=== PATIENT | female | born 1940 | race Caucasian/White ===

== ENCOUNTER 2017-04-22 11:32 | Inpatient (IN) | payer MEDICARE ==
--- NOTE | ~2017-04-22 | HP ---
Unit #: [id number] #: [id number] Patient: OLEG WESTFALL [id number] [address] [place], [place] [address] [id number] I MR#: [id number] NAME: OLEG WESTFALL. ROOM: 322 Age: 76 Sex: F Admission Date: 04/22/2017 : 1940 Attending Physician: Yuri Lam M.D. Primary Care Physician: Kem Davis M.D. HISTORY AND PHYSICAL CHIEF COMPLAINT Shortness of breath. HISTORY OF PRESENT ILLNESS The patient is a 76-year-old female with a past medical history of a seizure disorder, COPD, chronic respiratory failure, hypertension and chronic back pain, presented to the [facility] for the shortness of breath. The patient is not feeling well for the last three to four days, associated with diarrhea and shortness of breath. The patient had a chest x-ray at the [facility] and that showed there is a new bilateral interstitial change with patchy airspace density in the right apex and right mid and lower lungs. Findings are favored to represent asymmetric edema or pneumonia. The patient is being admitted for the above reasons. PAST MEDICAL HISTORY History of seizures, COPD, chronic respiratory failure anemia, hypertension, depression, chronic back pain. PAST SURGICAL HISTORY Cholecystectomy, eye surgery, . SOCIAL HISTORY The patient lives alone. There is no alcohol, tobacco or any illicit drug abuse. FAMILY HISTORY Notable for CVA. ALLERGIES Penicillin, quinolones and bupropion. HOME MEDICATION Aspirin, albuterol, Norvasc, complex pill, Lasix, Neurontin, Cymbalta, Lisinopril, Lopressor and Keppra. REVIEW OF SYMPTOMS A 14-point review of symptoms performed and only pertinent positive findings as described above, remaining are negative. PHYSICAL EXAMINATION GENERAL APPEARANCE: On examination the patient is lying on a bed not in acute distress. VITAL SIGNS: Temperature is 97.7, pulse 72, respirations 18 and blood Unit #: [id number] #: [id number] Patient: OLEG WESTFALL pressure is 138/61. HEENT: Head atraumatic/normocephalic. Pupils equal, round and reacting to light and accommodation. Extraocular movements are intact. NECK: Supple. LUNGS: Decreased air entry at the bases. Positive for rhonchi. HEART: Regular rate and rhythm. ABDOMEN: Soft, positive bowel sounds. EXTREMITIES: No cyanosis. No clubbing. NEUROLOGIC: Alert, awake, oriented. No gross focal motor deficit. DIAGNOSTIC STUDIES LABORATORY DATA: ABG shows pH of 7.38, pCO2 of 44.8, pO2 66, bicarb 25.7, oxygen saturation 93. INR is 1.9. WBC 35.5, hemoglobin 9.8, hematocrit 29.9, platelets 433. Lactic acid is 1. Sodium 133, potassium 3, chloride 96, bicarb 24, glucose 168, BUN 16, creatinine 0.9, BNP 400. UA shows positive nitrite, 2+ protein, 3+ blood, 2+ bacteria. Ammonia is 24 and. ASSESSMENT 1. Pneumonia. 2. Hyponatremia. 3. Hypokalemia. PLAN Plan to admit the patient to the inpatient with the telemetry. Continue with IV antibiotics with Rocephin and Zithromax and continue with the replacement of potassium and continue with the diuresis and repeat the CBC again and further recommendations will follow. Meredith TD: 04/22/2017 21:20 JOB #: [id number] Dictated by Keysha Rousseau TD: 04/23/2017 20:37 JOB #: [id number] HISTORY AND PHYSICAL Page 1 of 1 X SIENNA PARIKH MD X HISTORY AND PHYSICAL
--- NOTE | ~2017-04-22 | CO ---
Unit #: [id number] #: [id number] Patient: OLEG WESTFALL [id number] [address] [place], [place] [address] [id number] I MR#: [id number] NAME: OLEG WESTFALL. ROOM: 326 Age: 76 Sex: F Admission Date: 04/22/2017 : 1940 Attending Physician: Yuri Lam M.D. Primary Care Physician: Kem Davis M.D. CONSULTATION REPORT CHIEF COMPLAINT Bilateral pneumonia, leukocytosis, thrombocytosis, anemia. HISTORY OF PRESENT ILLNESS This is a 76-year-old female who started smoking at the age of 10. She has been smoking more than 50 years, averaging two to three packs per day. She came to the hospital with declined performance. Cough. Patient had chest x-ray and CT of the chest it showed bilateral pneumonia, COPD, and emphysema. From a hematology point of view, CBC shows WBC 30.3, hemoglobin 10.3, MCV 91, platelets 499, neutrophils 91%. I reviewed the peripheral smear. There are myelocytes, bands. No blasts, no schistocytes. At present, she is comfortable and wants to go home. REVIEW OF SYSTEMS CONSTITUTIONAL: No fever, no chills, no sweats, no weight loss. EYES: No visual symptoms. EARS, NOSE AND THROAT: There is no runny nose or sore throat or difficulty hearing. CARDIOVASCULAR: No chest pain. No shortness of breath. No palpitations. No orthopnea. No PND. RESPIRATORY: As mentioned above. GASTROINTESTINAL: No nausea, vomiting, diarrhea, constipation, hematochezia or melena. GENITOURINARY: No urinary frequency, hesitancy or urgency. No blood in the urine. MUSCULOSKELETAL: No muscle or joint pain. NEUROLOGIC: No headache. No numbness or tingling. No weakness. No seizure. PSYCHIATRIC: No anxiety, depression or mood disturbance. ENDOCRINE: No excessive urination or thirst. DERMATOLOGIC: No rash or change in the skin. ALLERGIC/IMMUNOLOGIC: No symptoms. HEMATOLOGIC/LYMPHATIC: Denies any symptoms. PAST MEDICAL HISTORY Includes: 1. Seizure disorder. 2. COPD. 3. Depression. 4. Anxiety. 5. Back pain. Unit #: [id number] #: [id number] Patient: OLEG WESTFALL 6. Hypertension. PAST SURGICAL HISTORY 1. Cholecystectomy. 2. . CURRENT MEDICATIONS Include: 1. Solu-Medrol. 2. Lovenox. 3. Cymbalta. 4. Keppra. 5. Rocephin. ALLERGIES 1. Penicillin. 2. Quinolones. SOCIAL HISTORY As mentioned above. She started smoking at age of 10 and patient has been smoking more than 50 years, about two to three packs per day. Denies alcohol use. She used to work in a factory. FAMILY HISTORY Positive for CVA. PHYSICAL EXAMINATION GENERAL: Patient is comfortable. ECOG is 0. The patient is pleasant. VITAL SIGNS: Afebrile. Pulse 67, respiratory rate 18, O2 saturation 2 liters 97%, blood pressure 110/43. HEENT: Moist mucosa. Pupils equally reactive to light. Extraocular muscles intact. Sclerae anicteric. No obvious bleeding from nasal mucosa or oral mucosa. Scalp normal. Hearing normal. NECK: No JVD. No lymphadenopathy. LYMPHATIC/HEMATOLOGIC: There is no palpable adenopathy in the neck, axilla or inguinal area. CARDIOVASCULAR: S1, S2. Regular rate and rhythm. No S3 or S4. RESPIRATORY: Some bilateral wheezes. ABDOMEN/GASTROINTESTINAL: Abdomen is soft, nontender, nondistended. No hepatosplenomegaly. EXTREMITIES: There is no clubbing, no cyanosis, no edema. No varicose veins. NEUROLOGICAL: Patient is alert, awake and oriented x3. Cranial nerves II-XII are intact. Sensory grossly intact. Motor is 4/5 in all four extremities. Gait is normal. Station is normal. Language is normal. Memory is normal. DTRs +2 in all four extremities. MUSCULOSKELETAL: No joint swelling. No bony tenderness. No muscle tenderness. SKIN: No petechiae, no rash, no ecchymosis. PSYCHIATRIC: No anxiety. No delusions or hallucinations. There is no agitation. Eye contact is normal. Affect is appropriate. There is no flight of ideas. DIAGNOSTIC STUDIES LABORATORY: As mentioned above. IMAGING: CT of the chest showing bilateral pneumonia. Unit #: [id number] #: [id number] Patient: OLEG WESTFALL ASSESSMENT AND PLAN This 76-year-old female has the following active issues: 1. Leukocytosis, thrombocytosis. I reviewed the peripheral smear. There is a myelocyte. There are bands. I doubt that she has disease in the bone marrow. This is most likely reactive secondary to infection. I follow the patient as an outpatient. If leukocytosis and thrombocytosis persist, then we will do bone marrow biopsy to rule out myeloproliferative disease. This is because she is a 76-year-old, she has had . 2. Anemia. Will check iron study. 3. Respiration. Patient has COPD and pneumonia. She is receiving antibiotic and is stable. Dictated by... Jaqui Cool M.D. Michael TD: 04/25/2017 18:34 JOB #: [id number] CONSULTATION REPORT Page 1 of 1 X Jaqui Cool MD CONSULTATION REPORT
--- NOTE | ~2017-04-22 | OR ---
Unit #: [id number] #: [id number] Patient: OLEG WESTFALL [id number] [address] [place], [place] [address] [id number] I MR#: [id number] NAME: OLEG WESTFALL. ROOM: [facility] Date of Procedure: 04/26/2017 Admission Date: 04/22/2017 Surgeon: Ivet Cortez M.D. : 1940 Attending Physician: Yuri Lam M.D. Primary Care Physician: Kem Davis M.D. PROCEDURE OPERATIVE NOTE PREOPERATIVE DIAGNOSIS Pneumonia. POSTOPERATIVE DIAGNOSIS Pneumonia. PROCEDURE PERFORMED Bronchoscopy and bronchioalveolar lavage. INDICATION Pneumonia. DETAILS OF THE PROCEDURE After taking consent from the patient and explaining risks and benefits, the patient was placed in appropriate position. Bronchoscope introduced in the oral cavity and vocal cords appeared to be symmetrically moving toward the midline. Trachea was normal. Mary was sharp. We examined the right upper, right middle, and right lower lobe, left upper lobe, lingula, and left lower lobe and no endobronchial lesion was found. There were thick mucoid secretions both lungs which were therapeutic suctioned and we did a bronchioalveolar lavage with 60 mL saline and then 20 mL back in the right upper lobe area. The patient tolerated the procedure very well. No complications happened. Dictated by... Keysha Moore TD: 04/27/2017 10:45 JOB #: [id number] Unit #: [id number] #: [id number] Patient: OLEG WESTFALL PROCEDURE OPERATIVE NOTE Page 1 of 1 X Ivet Cortez MD PROCEDURE OPERATIVE NOTE
--- NOTE | ~2017-04-22 | CT57 ---
[facility] A Service of [facility] & [facility] RADIOLOGY TEXT RESULTS PATIENT: OLEG WESTFALL LOCATION: [facility] 322- : 40 UNIT #: [id number] AGE: [address]: Yuri Lam MD SEX: F ORDER DR: [id number] [facility] [address] [place], [place] [address] [id number] I MR#: [id number] Acc #: [id number] NAME: OLEG WESTFALL. : 1940 SEX: F STUDY DATE/TIME: 04/24/2017 10:14 UNIT: [address] ROOM: [facility] STUDY DESCRIPTION: CT Chest Wo Cont Attending Physician: Yuri Lam M.D. Ordering Physician: Yuri Lam M.D. Primary Care Physician: Kem Davis M.D. MEDICAL IMAGING REPORT This report is preliminary unless electronic signature is present EXAM CT chest without contrast 04/24/2017 1014 hours CLINICAL HISTORY Patient complains of shortness of air since 04/22/2017. Abnormal chest x-ray on 04/22/2017 with question of pneumonia versus pulmonary nodule. COMPARISON Chest CT 12/21/2013 and chest x-ray 04/22/2017. TECHNIQUE Helical noncontrasted images were obtained from the thoracic inlet through the adrenal glands. Sagittal and coronal reconstructions were performed. Total exam DLP 538 mGy-cm. This CT exam was performed with one or more of the following radiation dose reduction techniques: Automatic exposure control, adjustment of mA and/or kV according to patient size, and iterative reconstruction. FINDINGS Images through the thoracic inlet demonstrate a stable low-density lesion in the left lobe of thyroid unchanged from 12/21/2013 most consistent with a benign follicular cyst. There is no supraclavicular adenopathy. Images through the chest demonstrate a tortuous aorta with atherosclerotic change. Cardiac chambers are within normal limits. There is no pericardial fluid. The esophagus is normal. The lung window images are abnormal. There is multifocal patchy airspace density in the upper lobes right greater than left and lower lobes right greater than left. There are some ground-glass areas of more dense airspace areas with a few areas of air bronchograms. The findings are most suggestive of multifocal pneumonia. There is no discrete mass. The density in the lateral mid right lung on chest film 04/22/2017 was likely STS. [facility] A Service of [facility] & [facility] RADIOLOGY TEXT RESULTS PATIENT: OLEG WESTFALL LOCATION: [facility] 322-01 : 40 UNIT #: [id number] AGE: [address]: Yuri Lam MD SEX: F ORDER DR: superimposition of confluence of several of these areas of abnormal density in the midlung region. There is suggested mucous plugging in the lower lobe on the right. There is peribronchial wall thickening suggested diffusely likely an element of bronchitis, acute or chronic. There is no pleural effusion. Limited views through the upper abdomen are negative. IMPRESSION 1. There is a multifocal airspace density in the right lung greater than left, involving the upper, mid and lower lungs bilaterally similar to chest film 04/22/2017. The findings most likely represent multifocal pneumonia. There is no discrete mass, pleural effusion, or pathologic adenopathy. There are areas where there is suggested peribronchial wall thickening in a few areas with mucous plugging particularly in the right lower lobe. Aspiration pneumonia is a consideration, however, given the extensive bilateral appearance community acquired multifocal pneumonia is favored. 3. Mildly tortuous aorta. Normal cardiac chambers. 4. No acute findings in the upper abdomen. STAT * RESULT Dictated by... Alysha Oliveira M.D. THIS IS AN ELECTRONICALLY VERIFIED REPORT Alysha Oliveira M.D. at 04/24/2017 2:31 PM HILLARY/trish TD: 04/24/2017 13:22 JOB #: [id number] MEDICAL IMAGING REPORT Page 1 of 1 COPY
--- NOTE | ~2017-04-22 | DS ---
Unit #: [id number] #: [id number] Patient: OLEG WESTFALL [id number] [address] [address] [id number] I MR#: [id number] NAME: OLEG WESTFALL. ROOM: 326 Age: 76 Sex: F Admission Date: 04/22/2017 : 1940 Discharge Date: 04/28/2017 Attending Physician: Yuri Lam M.D. Primary Care Physician: Kem Davis M.D. DISCHARGE SUMMARY DIAGNOSES ON ADMISSION Pneumonia, sepsis. DIAGNOSES ON DISCHARGE 1. Bilateral pneumonia. 2. Acute on chronic respiratory failure. 3. Sepsis, resolved. 4. Acute urinary tract infection. 5. Acute exacerbation of chronic obstructive pulmonary disease, improved. 6. Leukocytosis. 7. Tobacco abuse. 8. Seizure disorder. 9. Depression. 10. Chronic low back pain. CONSULTANTS Dr. Cortez in pulmonary consultation. Dr. Jaqui Bajwa in hematology consultation. PROCEDURES PERFORMED The patient had a bronchoscopy done, which did not reveal any endobronchial lesion. There were thick mucoid secretions which were suctioned. DIAGNOSTIC DATA LABORATORY: The patient's creatinine today was 0.5, sodium 138, potassium 4.8. Folate level greater than 24. White blood cell count 25.6, hemoglobin 9.9, platelets 607. Blood cultures did not reveal any growth so far. Urine for legionella antigen was negative. Urine for strep pneumonia was also negative. Bronchial (1) and revealed 2+ yeast. There was no other growth. No bacterial growth. C-diff was negative. The patient's procalcitonin level was 0.99. Urine culture was positive for e-coli, which was sensitive to ceftriaxone. IMAGING: CT scan of the abdomen and pelvis had revealed bilateral multifocal densities, right greater than left. There was no discrete mass. HOSPITAL COURSE The patient is a 76-year-old female who was admitted to [facility] for shortness of air. Details are as per admission history and physical. Sepsis. Unit #: [id number] #: [id number] Patient: OLEG WESTFALL Bilateral pneumonia: The patient was seen by Dr. Cortez in consultation and was treated with IV antibiotics and had a bronchoscopy done. The patient is feeling much better now. Acute e-coli urinary tract infection: The patient will be on Omnicef. Acute exacerbation of chronic obstructive pulmonary disease: The patient was treated with Solu-Medrol and has responded well. Leukocytosis: The patient's white blood cell count was consistently elevated. Dr. Cool was consulted and has recommended that the patient can follow up on an outpatient basis for further workup. If white blood cells stay persistent, then he will do a bone marrow biopsy. The patient received IV iron during the stay in the hospital. PHYSICAL EXAMINATION GENERAL: Today on physical examination the patient is comfortable, sitting in a chair. He is much better. He has already walked with physical therapy. VITALS: Temperature 97.9, pulse 67 per minute, respiratory rate 18 per minute, blood pressure 126/45, oxygen saturation 95% on 2 liters O2. HEENT: No conjunctival congestion. Sclerae nonicteric. NECK: Supple. Trachea central. RESPIRATORY: Decreased breath sounds bilaterally. There are no wheezes or crackles. HEART: Regular rate and rhythm. S1 and S2. ABDOMEN: Soft and nontender. Bowel sounds are present in all four quadrants. SKIN: Warm and dry. LUNGS: There are bilateral crackles. DISCHARGE CONDITION Stable. ACTIVITY As tolerated. DISPOSITION The patient will be transferred to the rehab facility. DISCHARGE MEDICATIONS 1. Albuterol min-neb treatments q.2 h. p.r.n. and q.6 h. scheduled. 2. Tylenol 650 mg p.o. q.6 h. p.r.n. 3. Lovenox 40 mg subcutaneous daily for 1 week until the patient ambulates better. 4. Neurontin 100 mg p.o. t.i.d. 5. Keppra 500 mg p.o. b.i.d. 6. Cymbalta 30 mg p.o. b.i.d. 7. Diflucan 100 mg p.o. daily for 2 days. 8. Robitussin cough syrup 5 mg q.6 h. p.r.n. cough. 9. Nicotine patch 21 mg 1 patch daily. 10. Norvasc 5 mg p.o. daily. 11. Lopressor 50 mg p.o. b.i.d. 12. Namenda 10 mg p.o. daily. 13. Aricept 10 mg p.o. daily. 14. Mucinex 600 mg p.o. b.i.d. 15. Lasix 40 mg p.o. daily. Unit #: [id number] #: [id number] Patient: OLEG WESTFALL 16. Lisinopril 5 mg p.o. daily. 17. Enteric coated aspirin 81 mg p.o. daily. 18. Spironolactone 25 mg p.o. daily. 19. Vitamin B complex 1 tablet p.o. daily. The plan was discussed in detail with the patient's daughter, Rosario, and also with the patient's son-in-law, Dr. Cameron Ignacio, multiple times. They were given the opportunity to ask questions and all of their questions were discussed to their apparent satisfaction. The plan was also discussed with Dr. Cortez, who was also discussed with Dr. Ignacio. I also personally discussed the plan with Dr. Jaqui Cool. If the patient has a persistent leukocytosis, then she will need to follow up with Dr. Cool for further workup. Total time spent on this discharge was 35 minutes. Dictated by... Keysha Almendarez TD: 04/28/2017 15:24 JOB #: [id number] DISCHARGE SUMMARY Page 1 of 1 X Yuri Lam MD X DISCHARGE SUMMARY
--- NOTE | ~2017-04-22 | CO ---
Unit #: [id number] #: [id number] Patient: OLEG WESTFALL [id number] [address] [place], [place] [address] [id number] I MR#: [id number] NAME: OLEG WESTFALL ROOM: 322 Age: 76 Sex: F Admission Date: 04/22/2017 : 1940 Attending Physician: Yuri Lam M.D. Primary Care Physician: Kem Davis M.D. Consultation Date: 04/24/2017 CONSULTATION REPORT REASON FOR CONSULT Pneumonia. CHIEF COMPLAINT Shortness of breath. HISTORY OF PRESENT ILLNESS This is a very pleasant 76-year-old female with past medical history significant for chronic hypoxic respiratory failure - mainly at night, seizure disorder, COPD and hypertension who presented to the emergency room with progressive shortness of breath for the last few days. The patient stated that she has not been feeling well for the last week, and she had some mild loose stool associated with shortness of breath and cough. Her chest x-ray is concerning for bilateral pneumonia; however, malignancy cannot be ruled out. Patient denied any nausea, vomiting or fever. PAST MEDICAL HISTORY 1. Seizure. 2. COPD. 3. Chronic hypoxic respiratory failure. 4. Hypertension. 5. Depression. 6. Chronic back pain. PAST SURGICAL HISTORY 1. Cholecystectomy. 2. Eye surgery. 3. . SOCIAL HISTORY The patient lives alone. No history of alcohol or drug abuse; however, she smokes but unsure how much. FAMILY HISTORY CVA. ALLERGIES Penicillin, quinolones and bupropion. HOME MEDICATIONS 1. Aspirin. 2. Albuterol. 3. Norvasc. Unit #: [id number] #: [id number] Patient: OLEG WESTFALL 4. Complex pill. 5. Lasix. 6. Neurontin. 7. Cymbalta. 8. Lisinopril. 9. Lopressor. 10. Keppra. REVIEW OF SYSTEMS Patient is a poor historian, and to my best knowledge, she stated that she was feeling bad with shortness of breath and cough and diarrhea. A 12-point review of systems was obtained and was negative except for what was mentioned above. PHYSICAL EXAMINATION GENERAL: The patient is in no acute distress at this point. VITAL SIGNS: Temperature 98.3, O2 saturation 92% on 4 liters nasal cannula. HEENT: Atraumatic, normocephalic. PERRLA, EOMI. NECK: Supple. No JVD. No lymphadenopathy. CHEST: Bilateral fine rhonchi with diminished breath sounds at the bases. HEART: S1, S2. No murmur, gallops or rubs. ABDOMEN: Soft, nontender. Bowel sounds positive. No hepatosplenomegaly. EXTREMITIES: No edema or cyanosis. SKIN: No rashes. SLIDE ATTENDANT: Awake, alert, oriented x3. No focal motor/sensory deficits. DIAGNOSTIC STUDIES LABS: Creatinine 0.5, sodium 140. White blood count 39.9, hemoglobin 10.5. ASSESSMENT 1. Acute on chronic hypoxic respiratory failure. 2. Community-acquired pneumonia, gram-positive/atypical. 3. Rule out malignancy. 4. Smoking. 5. COPD exacerbation. 6. Chronic anemia. PLAN 1. The patient's oxygen will be weaned down to baseline. She is currently on 4-5 liters nasal cannula. 2. Will obtain a dedicated CT chest to evaluate for underlying lung malignancy, and we may need to proceed with bronchoscopy. 3. Legionella and Streptococcus urine antigen test. 4. Rocephin and azithromycin. 5. Bronchodilator, mucolytics and antitussive. 6. Gentle IV hydration if needed. 7. Physical therapy. Dictated by... Lynette Alvarado M.D. EA/sae Unit #: [id number] #: [id number] Patient: OLEG WESTFALL TD: 04/24/2017 11:04 JOB #: [id number] CONSULTATION REPORT Page 1 of 1 X LYNETTE POLANCO MD X CONSULTATION REPORT
--- NOTE | ~2017-04-22 | CR72 ---
[facility] A Service of [facility] RADIOLOGY TEXT RESULTS PATIENT: OLEG WESTFALL LOCATION: [facility] 322-01 : 40 UNIT #: [id number] AGE: [address]: SIENNA PARIKH MD SEX: F ORDER DR: [id number] [place] [id number] E MR#: [id number] Acc #: [id number] NAME: OLEG WESTFALL : 1940 SEX: F STUDY DATE/TIME: 04/22/2017 12:20 UNIT: SED ROOM: STUDY DESCRIPTION: CR Chest Single View Portable Attending Physician: Abhi Davies M.D. Ordering Physician: Abhi Davies M.D. Primary Care Physician: Kem Davis M.D. MEDICAL IMAGING REPORT This report is preliminary unless electronic signature is present. EXAM Chest portable 04/22/2017 1220 hours HISTORY 76-year-old with history of Alzheimer, prior CVA complaining of shortness of air and weakness for 3-4 days. COMPARISON 01/03/2015 FINDINGS Portable upright chest demonstrates normal heart size. Mediastinal and hilar contours are normal. There is pulmonary venous distension and bilateral diffuse interstitial changes. Findings are greater on the right than left. There is airspace density in the right mid lung right lung base which could represent edema or pneumonia. Area appears slightly nodular in the lateral right mid hemithorax measuring up to 2.7 cm. It is possible this represents confluent airspace change, loculated fluid or developing lung mass or nodule. Suggest treatment for the acute abnormality with followup chest CT if this fails to resolve. IMPRESSION There is new bilateral interstitial change with patchy airspace density in the right apex and right mid and lower lungs. Findings are favored to represent asymmetric edema or pneumonia. There is a nodular appearing area in the lateral mid-right hemithorax measuring up to 2.7 cm. This could represent confluent airspace density, loculated pleural fluid or developing lung mass or nodule. This is not seen on the prior studies. Suggest treatment for the acute pulmonary process. If this nodular area fails to rapidly resolve or decrease in size then a followup chest CT would be recommended. [facility] A Service of [facility] RADIOLOGY TEXT RESULTS PATIENT: OLEG WESTFALL LOCATION: [facility] 322-01 : 40 UNIT #: [id number] AGE: [address]: SIENNA PARIKH MD SEX: F ORDER DR: Dictated by... Alysha Oliveira M.D. THIS IS AN ELECTRONICALLY VERIFIED REPORT Alysha Oliveira M.D. at 04/22/2017 8:03 PM HILLARY/ara TD: 04/22/2017 14:36 JOB #: [id number] MEDICAL IMAGING REPORT Page 1 of 1
--- NOTE | ~2017-04-22 | EKG ---
PATIENT: OLEG WESTFALL UNIT #: [id number] Ventricular Rate: 107 BPM Atrial Rate: 107 BPM P-R Interval: 180 ms QRS Duration: 74 ms Q-T Interval: 352 ms QTC Calculation(Bezet): 469 ms P [place]: 86 degrees Calculated R [place]: 44 degrees Calculated T [place]: 64 degrees Diagnosis Line: Sinus tachycardia with Possible Premature atrial Diagnosis Line: complexes with Aberrant conduction Diagnosis Line: Septal infarct , age undetermined Diagnosis Line: Abnormal ECG Diagnosis Line: When compared with ECG of 05-JAN-2015 06:56, Diagnosis Line: Aberrant conduction is now Present Diagnosis Line: Septal infarct is now Present Diagnosis Line: Confirmed by MARVA FLORES MD ([id number]) on Diagnosis Line: 04/30/2017 8:28:14 AM INTERPRETING MD: MARK YOUNGBLOOD
[~2017-04-22 11:32] MED LIST: AIRGO ROLLING W1 PKT MC; ALBUTEROL MININEB NEB; ASPIRIN EC PO; ASPIRIN EC81 M1 PO; ASPIRIN81 M1 PO; BP PILL; CYMBALTA30 MG PO; DILANTIN; DILANTIN KAPSE100 MG PO; DILANTIN PO; GABAPENTIN300 MG PO; HYDROCODON-ACE1 EAC4 PO; HYDROCODON-ACE1 EAC5 PO; IBUPROFEN PO; IBUPROFEN400 MG PO; INHALER; K-LYTE PO; KEPPRA500 M2 PO; KEPPRA500 MG PO; KLOR-CON PO; LAMOTRIGINE50 MG PO; LASIX PO; LASIX20 MG PO; LISINOPRIL20 MG PO; LISINOPRIL5 MG PO; LOPRESSOR PO; LORTAB 10-5001 EACH PO; LORTAB 5/500 TA1 TA2 PO; LORTAB 7.5-5001 TAB PO; LYRICA100 MG PO; MEDROL PO; METOPROLOL TAR25 MG PO; NAMENDA10 MG; NEURONTIN; NEURONTIN PO; NEURONTIN100 MG PO; NORVASC10 MG PO; PERCOCET PO; SERTRALINE HCL50 MG PO; TOPROL XL 50 MG50 MG PO; VANTIN200 MG PO; VICODIN 5/1 TAB 5/50 PO; WELLBUTRIN75 M1 PO; ZOLOFT PO; [UNRECOGNIZED DRUG - OTHER] PO
[2017-04-22 12:22] LABS: ARTERIAL BLOOD GAS HCO3 25.7 mmol/L; ARTERIAL BLOOD GAS PCO2 44.8 mmHg (35.0-45.0)
[2017-04-22 12:23] LABS: ARTERIAL BLOOD GAS ALLEN TEST NORMAL; ARTERIAL DRAW? YES
[2017-04-22 12:24] LABS: ARTERIAL BLOOD GAS ART SITE LEFT RADIAL
[2017-04-22 12:31] LABS: BASOPHIL# 0.1 X10e3 (0-0.3); BASOPHIL% 0.2 % (0-2.5); HEMATOCRIT 29.9 % (35.0-45.0); HEMOGLOBIN 9.8 gm/dL (12.0-16.0); LYMPHOCYTE# 1.3 X10e3 (1.0-3.5); LYMPHOCYTE% 3.7 % (17.0-45.0); MEAN CORPUSCULAR HEMOGLOBIN 29.3 PG (28-34); MEAN CORPUSCULAR HGB CONC 32.9 g/dL (30-36); MEAN PLATELET VOLUME 8.5 FL (6.5-11.5); MONOCYTE# 1.5 X10e3 (0-1.0); MONOCYTE% 4.2 % (3.0-12.0); NEUTROPHIL# 32.6 X10e3 (1.5-7.1); NEUTROPHIL% 91.9 % (40-75); PLATELET COUNT 423 X10e3 (140-420); RED BLOOD COUNT 3.36 X10e (3.90-5.30); RED CELL DISTRIBUTION WIDTH 13.5 % (11.0-15.5); WHITE BLOOD COUNT 35.5 X10e3 (4.0-10.5)
[2017-04-22 12:34] LABS: DIFF IND YES
[2017-04-22 12:43] LABS: INR 1.7; PROTHROMBIN TIME (PATIENT) 18.9 SECONDS (9.5-12.4)
[2017-04-22 12:52] LABS: ALBUMIN SERUM 2.6 g/dL (3.5-5.0); BILIRUBIN, DIRECT 0.2 mg/dL (0.0-0.2); BILIRUBIN,INDIRECT 0.3 mg/dL (0.0-0.9); BILIRUBIN,TOTAL 0.5 mg/dL (0.2-2.0); BUN/CREATININE RATIO 17.77; CALCIUM SERUM 8.3 mg/dL (8.4-10.2); CREATININE SERUM 0.9 mg/dL (0.6-1.4); GLOM FILT RATE Estimated 62.2 mL/min (>60); PROTEIN TOTAL SERUM 7.7 g/dL (6.0-8.3)
[2017-04-22 12:58] LABS: PLATELET ESTIMATE INCREASED (NORMAL); RBC NORMAL YES
[2017-04-22 13:18] LABS: URINE APPEARANCE CLEAR; URINE BILIRUBIN NEG (NEG); URINE BLOOD 3+ (NEG); URINE COLOR YELLOW; URINE GLUCOSE NEG (NORM); URINE LEUKOCYTE ESTERASE NEG (NEG); URINE NITRATE POS (NEG); URINE PROTEIN 2+ (NEG); URINE SPECIFIC GRAVITY 1.025 (1.003-1.035); URINE UROBILINOGEN 0.2 MG/DL (NORM)
[2017-04-22 13:20] LABS: MICRO INDICATED? YES; URINE KETONE 2+ (NEG)
[2017-04-22 13:27] LABS: URINE RBC 0-2 /[HPF] (0-2)
[2017-04-22 13:28] LABS: CULTURE INDICATED? YES; URINE BACTERIA 2+ (NEG); URINE SQUAMOUS EPITHELIAL CELL OCCAS /[HPF]
[2017-04-22 19:27] LABS: HEMATOCRIT 31.7 % (35.0-45.0); MEAN CELL VOLUME 91.2 FL (83-96); MEAN CORPUSCULAR HEMOGLOBIN 28.8 PG (28-34); MEAN CORPUSCULAR HGB CONC 31.6 g/dL (30-36); MEAN PLATELET VOLUME 8.5 FL (6.5-11.5); RED BLOOD COUNT 3.48 X10e (3.90-5.30); RED CELL DISTRIBUTION WIDTH 13.7 % (11.0-15.5)
[2017-04-23 06:12] LABS: HEMATOCRIT 32.2 % (35.0-45.0); HEMOGLOBIN 10.3 gm/dL (12.0-16.0); MEAN CORPUSCULAR HEMOGLOBIN 29.2 PG (28-34); MEAN CORPUSCULAR HGB CONC 32.1 g/dL (30-36); MEAN PLATELET VOLUME 8.7 FL (6.5-11.5); RED BLOOD COUNT 3.54 X10e (3.90-5.30); RED CELL DISTRIBUTION WIDTH 14.3 % (11.0-15.5); WHITE BLOOD COUNT 36.9 X10e3 (4.0-10.5)
[2017-04-23 06:59] LABS: BUN/CREATININE RATIO 26.66; CALCIUM SERUM 8.4 mg/dL (8.4-10.2); CREATININE SERUM 0.6 mg/dL (0.6-1.4); GLOM FILT RATE Estimated 88.5 mL/min (>60); POTASSIUM 3.8 mmol/L (3.5-5.1)
[2017-04-24 05:50] LABS: HEMATOCRIT 33.2 % (35.0-45.0); HEMOGLOBIN 10.5 gm/dL (12.0-16.0); MEAN CELL VOLUME 91.7 FL (83-96); MEAN CORPUSCULAR HEMOGLOBIN 28.8 PG (28-34); MEAN CORPUSCULAR HGB CONC 31.5 g/dL (30-36); MEAN PLATELET VOLUME 8.9 FL (6.5-11.5); RED BLOOD COUNT 3.62 X10e (3.90-5.30); RED CELL DISTRIBUTION WIDTH 14.4 % (11.0-15.5); WHITE BLOOD COUNT 39.9 X10e3 (4.0-10.5)
[2017-04-24 06:51] LABS: CALCIUM SERUM 8.6 mg/dL (8.4-10.2); CREATININE SERUM 0.5 mg/dL (0.6-1.4); POTASSIUM 4.1 mmol/L (3.5-5.1)
[2017-04-25 05:34] LABS: HEMATOCRIT 33.2 % (35.0-45.0); HEMOGLOBIN 10.3 gm/dL (12.0-16.0); MEAN CELL VOLUME 91.4 FL (83-96); MEAN CORPUSCULAR HEMOGLOBIN 28.5 PG (28-34); MEAN CORPUSCULAR HGB CONC 31.2 g/dL (30-36); MEAN PLATELET VOLUME 8.8 FL (6.5-11.5); RED BLOOD COUNT 3.63 X10e (3.90-5.30); RED CELL DISTRIBUTION WIDTH 14.4 % (11.0-15.5); WHITE BLOOD COUNT 30.3 X10e3 (4.0-10.5)
[2017-04-25 06:24] LABS: BUN/CREATININE RATIO 26.66; CALCIUM SERUM 8.2 mg/dL (8.4-10.2); CREATININE SERUM 0.6 mg/dL (0.6-1.4); GLOM FILT RATE Estimated 88.5 mL/min (>60); POTASSIUM 4.4 mmol/L (3.5-5.1)
[2017-04-25 11:32] LABS: LEGIONELLA AG URINE NEG (NEG)
[2017-04-26 06:12] LABS: HEMATOCRIT 33.3 % (35.0-45.0); HEMOGLOBIN 10.4 gm/dL (12.0-16.0); MEAN CELL VOLUME 91.7 FL (83-96); MEAN CORPUSCULAR HEMOGLOBIN 28.7 PG (28-34); MEAN CORPUSCULAR HGB CONC 31.3 g/dL (30-36); MEAN PLATELET VOLUME 8.5 FL (6.5-11.5); RED BLOOD COUNT 3.63 X10e (3.90-5.30); RED CELL DISTRIBUTION WIDTH 14.6 % (11.0-15.5); WHITE BLOOD COUNT 28.3 X10e3 (4.0-10.5)
[2017-04-26 07:46] LABS: FERRITIN 354 ng/mL (11-307)
[2017-04-26 09:03] LABS: ALBUMIN SERUM 2.2 g/dL (3.5-5.0); BILIRUBIN,TOTAL 0.7 mg/dL (0.2-2.0); BUN/CREATININE RATIO 25.71; CREATININE SERUM 0.7 mg/dL (0.6-1.4); GLOM FILT RATE Estimated 84.2 mL/min (>60); PROTEIN TOTAL SERUM 6.5 g/dL (6.0-8.3)
[2017-04-26 09:07] LABS: POTASSIUM 6.2 mmol/L (3.5-5.1)
[2017-04-26] MEDS ORDERED: DIFLUCAN PO (10:46)
[2017-04-26] MEDS ORDERED: DESENEX45 G1 EXT (10:46)
[2017-04-26] MEDS ORDERED: NITROFURANTOIN100 M3 PO (10:46)
[2017-04-26 14:09] LABS: BODY FLUID APPEARANCE TURBID; BODY FLUID SOURCE BRONCHIAL LAVAGE
[2017-04-27 06:20] LABS: HEMATOCRIT 32.8 % (35.0-45.0); HEMOGLOBIN 10.2 gm/dL (12.0-16.0); MEAN CELL VOLUME 91.3 FL (83-96); MEAN CORPUSCULAR HEMOGLOBIN 28.4 PG (28-34); MEAN CORPUSCULAR HGB CONC 31.1 g/dL (30-36); MEAN PLATELET VOLUME 8.3 FL (6.5-11.5); RED BLOOD COUNT 3.59 X10e (3.90-5.30); RED CELL DISTRIBUTION WIDTH 14.7 % (11.0-15.5); WHITE BLOOD COUNT 27.4 X10e3 (4.0-10.5)
[2017-04-27 07:19] LABS: ALBUMIN SERUM 2.4 g/dL (3.5-5.0); BILIRUBIN,TOTAL 0.6 mg/dL (0.2-2.0); CALCIUM SERUM 8.3 mg/dL (8.4-10.2); CREATININE SERUM 0.5 mg/dL (0.6-1.4); POTASSIUM 4.8 mmol/L (3.5-5.1); PROTEIN TOTAL SERUM 7.1 g/dL (6.0-8.3)
[2017-04-28 04:56] LABS: ARTERIAL BLD GAS O2 SATURATION 95.4 % (90.0-100.0); ARTERIAL BLOOD GAS HCO3 35.8 mmol/L; ARTERIAL BLOOD GAS PCO2 54.6 mmHg (35.0-45.0); ARTERIAL BLOOD GAS PO2 74.5 mmHg (80.0-100); ARTERIAL BLOOD GAS pH 7.426 (7.350-7.450)
[2017-04-28 04:57] LABS: ARTERIAL BLOOD GAS ART SITE LEFT BRACHIAL; ARTERIAL BLOOD GAS CARBOXY HB 0.6 %sat (0.0-9.0); ARTERIAL BLOOD GAS DELIVERY NASAL CANNULA; ARTERIAL BLOOD GAS MET HB 0.9 %sat (0.0-2.0); ARTERIAL DRAW? YES
[2017-04-28 07:15] LABS: HEMOGLOBIN 9.9 gm/dL (12.0-16.0); MEAN CORPUSCULAR HEMOGLOBIN 28.7 PG (28-34); MEAN CORPUSCULAR HGB CONC 31.9 g/dL (30-36); MEAN PLATELET VOLUME 8.5 FL (6.5-11.5); RED BLOOD COUNT 3.44 X10e (3.90-5.30); WHITE BLOOD COUNT 25.6 X10e3 (4.0-10.5)
[2017-04-28 07:57] LABS: ALBUMIN SERUM 2.2 g/dL (3.5-5.0); BILIRUBIN,TOTAL 0.5 mg/dL (0.2-2.0); CALCIUM SERUM 8.3 mg/dL (8.4-10.2); CREATININE SERUM 0.5 mg/dL (0.6-1.4); POTASSIUM 4.8 mmol/L (3.5-5.1); PROTEIN TOTAL SERUM 6.1 g/dL (6.0-8.3)
== END 2017-04-28 23:05 | DRG 853 ==
LOC: SED 11:32 → CEDOF 13:23 → C3A PCU 16:53 → CEDOF 16:53 → C3A PCU 17:00 → CEDOF 18:11 → C3A PCU 18:11
PROVIDERS: Emergency Medicine; Internal Medicine; Internal Medicine Hematology
PROC: 0B948ZX Drainage of Right Upper Lobe Bronchus, Via Natural or Artificial Opening Endoscopic, Diagnostic (ICD-10-PCS; principal; 2017-04-26 11:15)
PROC: 0B9M8ZZ Drainage of Bilateral Lungs, Via Natural or Artificial Opening Endoscopic (ICD-10-PCS; 2017-04-26 11:15)
DX: A41.9 Sepsis, unspecified organism (principal); J96.21 Acute and chronic respiratory failure with hypoxia; J18.9 Pneumonia, unspecified organism; N39.0 Urinary tract infection, site not specified; J44.0 Chronic obstructive pulmonary disease with (acute) lower respiratory infection; J44.1 Chronic obstructive pulmonary disease with (acute) exacerbation; E87.1 Hypo-osmolality and hyponatremia; B96.20 Unspecified Escherichia coli [E. coli] as the cause of diseases classified elsewhere; F17.210 Nicotine dependence, cigarettes, uncomplicated; G40.909 Epilepsy, unspecified, not intractable, without status epilepticus; F32.9 Major depressive disorder, single episode, unspecified; M54.5 Low back pain; Z90.49 Acquired absence of other specified parts of digestive tract; Z88.0 Allergy status to penicillin; Z88.8 Allergy status to other drugs, medicaments and biological substances; Z79.82 Long term (current) use of aspirin; E87.6 Hypokalemia; D64.9 Anemia, unspecified; D47.3 Essential (hemorrhagic) thrombocythemia
CPT/HCPCS: 36415; 36600; 71010; 71250; 80048; 80053; 80076; 81003; 82140; 82308; 82607; 82728; 82803; 83540; 83550; 83605; 83880; 84132; 85025; 85027; 85610; 87040; 87070; 87086; 87088; 87102; 87106; 87116; 87186; 87205; 87206; 87252; 87254; 87278; 87449; 87493; 87899; 88108; 88305; 88312; 89051; 93005; 94640; 94760; 97116; 97163; 97166; 97530; 97535; 99291; G8978-GP; G8979-GP; G8987-GO; G8988-GO; J0171; J0456; J0696; J1650; J2250; J2916; J2920; J2930; J3010; J3370